=== PATIENT | male | born 1945 | race Caucasian/White ===

== ENCOUNTER 2017-02-13 14:38 | Inpatient (IN) | payer MEDICARE, OTHER ==
[~2017-02-13] VITALS: Ht 182.9 cm; Wt 86.7 kg
[2017-02-13] MEDS ORDERED: methylPREDNISolone SOD SUCC 125 MG/2 ML IVP ONE (15:00)
[2017-02-13] MEDS ORDERED: SODIUM CHLORIDE FLUSH 10ML SYR IVF ONE (15:00)
[2017-02-13] MEDS ORDERED: methylPREDNISolone SOD SUCC 125 MG/2 ML ONE ×2 (15:21→17:59)
[2017-02-13] MEDS ORDERED: HYDROmorphone 2 MG/ML, 1ML ONE (15:21)
[2017-02-13] MEDS ORDERED: FUROSEMIDE 20 MG/2 ML ONE ×3 (15:21→16:43)
[2017-02-13] MEDS ORDERED: FUROSEMIDE 20 MG/2 ML IV ONE ×2 (15:30→16:30)
[2017-02-13] MEDS ORDERED: AZITHROMYCIN 500 MG in SODIUM CHLORIDE 0.9% 250 ML IV ONE (15:30)
[2017-02-13] MEDS ORDERED: CEFTRIAXONE PMX 1GM/50ML 50 ML IV ONE (15:30)
[2017-02-13] MEDS ORDERED: HYDROmorphone 1 MG/ML, 1ML IV ONE (15:30)
[2017-02-13] MEDS ORDERED: CEFTRIAXONE PMX 1GM/50ML 50 ML ONE (15:36)
[2017-02-13 15:44] LABS: HEMATOCRIT 42.8 % (39.2-51.8); HEMOGLOBIN 14.4 g/dL (13.7-18.0); WHITE BLOOD COUNT 9.3 x10^3/uL (3.4-10)
[2017-02-13 15:48] LABS: ASPARTATE AMINO TRANSFERASE 13 U/L (15-37); BLOOD UREA NITROGEN 18 mg/dL (7-18)
[2017-02-13 15:53] LABS: IS PT STATUS REG ER OR PRE ER? YES
[2017-02-13] MEDS ORDERED: ALBUTEROL SULFATE 2.5 MG/3 ML NPPB ONE (16:00)
[2017-02-13] MEDS ORDERED: ALBUTEROL/IPRATROPIUM 2.5MG/0.5MG, 3 ML ONE (16:01)
[2017-02-13 16:11] LABS: ABG COLLECTION SITE LEFT RADIAL; COLLATERAL CIRCULATION TESTING NORMAL
[2017-02-13 16:16] LABS: RAPID INFLUENZA A Negative (Negative); RAPID INFLUENZA B Negative (Negative)
[2017-02-13] MEDS ORDERED: ENOXAPARIN 40 MG/0.4 ML ONE (17:59)
[2017-02-13] MEDS: NICOTINE 14MG/24 HR PATCH.TD24 TD SCH (18:00)
[2017-02-13] MEDS: methylPREDNISolone SOD SUCC 125 MG/2 ML IVPush SCH ×2 (18:03→23:46)
[2017-02-13] MEDS: ENOXAPARIN 40 MG/0.4 ML SQ SCH (18:04)
[2017-02-13 18:33] VITALS: BP 137/53
[2017-02-13] MEDS: FAMOTIDINE 20 MG TABLET PO SCH (20:48)
[2017-02-13] MEDS ORDERED: THIAMINE 100 MG, FOLIC ACID 1 MG, MVI ADULT 10 ML in SODIUM CHLORIDE 0.9% 1,000 ML IV SCH (21:00)
[2017-02-13 22:28] LABS: IS PT STATUS REG ER OR PRE ER? NO
[2017-02-14 03:02] LABS: HEMATOCRIT 38.4 % (39.2-51.8); HEMOGLOBIN 12.9 g/dL (13.7-18.0); WHITE BLOOD COUNT 3.6 x10^3/uL (3.4-10)
[2017-02-14 03:12] LABS: BLOOD UREA NITROGEN 24 mg/dL (7-18)
[2017-02-14 03:19] LABS: ASPARTATE AMINO TRANSFERASE 11 U/L (15-37); IS PT STATUS REG ER OR PRE ER? NO
[2017-02-14 04:17] VITALS: BP 130/36
[2017-02-14] MEDS: ASPIRIN 81 MG TABLET EC PO SCH (06:03)
[2017-02-14] MEDS: methylPREDNISolone SOD SUCC 125 MG/2 ML IVPush SCH ×3 (06:04→22:08)
[2017-02-14] MEDS ORDERED: FUROSEMIDE 20 MG/2 ML IV SCH (07:30)
[2017-02-14] MEDS: FAMOTIDINE 20 MG TABLET PO SCH ×2 (09:35→21:00)
[2017-02-14] MEDS: CLOPIDOGREL 75 MG TABLET PO SCH (09:35)
[2017-02-14 10:30] VITALS: BP 157/62
[2017-02-14] MEDS: FOLIC ACID 1 MG TABLET PO SCH (13:00)
[2017-02-14] MEDS: THIAMINE 100MG TABLET PO SCH (13:00)
[2017-02-14 13:07] VITALS: BP 163/72
[2017-02-14] MEDS: ENOXAPARIN 40 MG/0.4 ML SQ SCH (18:00)
[2017-02-14] MEDS: NICOTINE 14MG/24 HR PATCH.TD24 TD SCH (18:16)
[2017-02-14 21:00] VITALS: BP 157/78
[2017-02-14] MEDS ORDERED: FUROSEMIDE 20 MG/2 ML IV ONE (21:00)
[2017-02-15 01:23] VITALS: BP 144/74
[2017-02-15 04:00] VITALS: BP 144/71
[2017-02-15] MEDS: ASPIRIN 81 MG TABLET EC PO SCH (05:18)
[2017-02-15] MEDS: methylPREDNISolone SOD SUCC 125 MG/2 ML IVPush SCH ×3 (05:18→21:27)
[2017-02-15 05:55] LABS: HEMOGLOBIN 13.6 g/dL (13.7-18.0); WHITE BLOOD COUNT 10.1 x10^3/uL (3.4-10)
[2017-02-15 06:15] LABS: ASPARTATE AMINO TRANSFERASE 15 U/L (15-37); BLOOD UREA NITROGEN 22 mg/dL (7-18)
[2017-02-15 07:45] VITALS: BP 170/83
[2017-02-15] MEDS: CLOPIDOGREL 75 MG TABLET PO SCH (09:29)
[2017-02-15] MEDS: FOLIC ACID 1 MG TABLET PO SCH (09:29)
[2017-02-15] MEDS: THIAMINE 100MG TABLET PO SCH (09:29)
[2017-02-15] MEDS: FAMOTIDINE 20 MG TABLET PO SCH ×2 (09:29→21:27)
[2017-02-15] MEDS ORDERED: FUROSEMIDE 40 MG/4 ML IV ONE (11:26)
[2017-02-15 12:46] VITALS: BP 156/73
[2017-02-15] MEDS: ENOXAPARIN 40 MG/0.4 ML SQ SCH (17:15)
[2017-02-15] MEDS: FUROSEMIDE 40 MG/4 ML IV SCH (17:15)
[2017-02-15] MEDS: NICOTINE 14MG/24 HR PATCH.TD24 TD SCH (17:21)
[2017-02-15 19:00] VITALS: BP 167/80
[2017-02-16 02:28] VITALS: BP 150/77
[2017-02-16] MEDS: ASPIRIN 81 MG TABLET EC PO SCH (06:06)
[2017-02-16 06:55] VITALS: BP 166/73
[2017-02-16 07:46] LABS: BLOOD UREA NITROGEN 28 mg/dL (7-18)
[2017-02-16] MEDS: FUROSEMIDE 40 MG/4 ML IV SCH ×2 (08:30→18:45)
[2017-02-16] MEDS: methylPREDNISolone SOD SUCC 125 MG/2 ML IVPush SCH (08:33)
[2017-02-16] MEDS: FAMOTIDINE 20 MG TABLET PO SCH ×2 (08:36→21:03)
[2017-02-16] MEDS: FOLIC ACID 1 MG TABLET PO SCH (08:36)
[2017-02-16] MEDS: CLOPIDOGREL 75 MG TABLET PO SCH (08:36)
[2017-02-16] MEDS: THIAMINE 100MG TABLET PO SCH (08:36)
[2017-02-16] MEDS: LISINOPRIL 5 MG TABLET PO SCH (08:36)
[2017-02-16 13:05] VITALS: BP 160/70
[2017-02-16] MEDS ORDERED: ALBUTEROL SULFATE 2.5 MG/3 ML ONE (13:13)
[2017-02-16] MEDS: ENOXAPARIN 40 MG/0.4 ML SQ SCH (18:43)
[2017-02-16] MEDS: NICOTINE 14MG/24 HR PATCH.TD24 TD SCH (18:44)
[2017-02-16] MEDS: ALBUTEROL SULFATE 2.5 MG/3 ML NPPB SCH ×2 (19:00→19:21)
[2017-02-16 19:37] VITALS: BP 131/55
[2017-02-17 01:37] VITALS: BP 147/65
[2017-02-17] MEDS: ASPIRIN 81 MG TABLET EC PO SCH (05:47)
[2017-02-17] MEDS: ALBUTEROL SULFATE 2.5 MG/3 ML NPPB SCH ×2 (07:00→10:50)
[2017-02-17] MEDS ORDERED: FLUTICASONE/VILANTEROL 100-25MCG/INH INH SCH (09:00)
[2017-02-17] MEDS: THIAMINE 100MG TABLET PO SCH (09:14)
[2017-02-17] MEDS: FAMOTIDINE 20 MG TABLET PO SCH (09:14)
[2017-02-17] MEDS: FOLIC ACID 1 MG TABLET PO SCH (09:15)
[2017-02-17] MEDS: LISINOPRIL 5 MG TABLET PO SCH (09:15)
[2017-02-17] MEDS: FUROSEMIDE 40 MG/4 ML IV SCH (09:15)
[2017-02-17] MEDS: CLOPIDOGREL 75 MG TABLET PO SCH (09:15)
[2017-02-17] MEDS ORDERED: FURO40TA6 PO (11:25)
[2017-02-17] MEDS ORDERED: LISI5TAB7 PO (11:25)
[2017-02-17] MEDS ORDERED: ALBU2.5V NPPB (11:25)
[2017-02-17] MEDS ORDERED: CLOP75TA PO (11:25)
[2017-02-17] MEDS ORDERED: ASPI-621 PO (11:25)
[2017-02-17] MEDS ORDERED: FUROSEMIDE 40 MG TABLET PO SCH (17:00)
== END 2017-02-17 13:00 | disposition home or self-care (01) | DRG 291 ==
LOC: ED 16:28 → EDIP 16:29 → ED 17:04 → CCU 18:09 → 3NE 02-14 11:00
PROVIDERS: ADMIT Hospitalist; ATTEND Internal Medicine
PROC: 5A09357 Assistance with Respiratory Ventilation, Less than 24 Consecutive Hours, Continuous Positive Airway Pressure (ICD-10-PCS; principal; 2017-02-13)
DX: I11.0 Hypertensive heart disease with heart failure (principal); J96.01 Acute respiratory failure with hypoxia; J81.0 Acute pulmonary edema; E87.1 Hypo-osmolality and hyponatremia; J44.1 Chronic obstructive pulmonary disease with (acute) exacerbation; I50.41 Acute combined systolic (congestive) and diastolic (congestive) heart failure; I25.10 Atherosclerotic heart disease of native coronary artery without angina pectoris; E11.51 Type 2 diabetes mellitus with diabetic peripheral angiopathy without gangrene; E11.42 Type 2 diabetes mellitus with diabetic polyneuropathy; I65.29 Occlusion and stenosis of unspecified carotid artery; F17.210 Nicotine dependence, cigarettes, uncomplicated; N28.9 Disorder of kidney and ureter, unspecified; Z79.02 Long term (current) use of antithrombotics/antiplatelets; Z79.82 Long term (current) use of aspirin; Z95.5 Presence of coronary angioplasty implant and graft
CPT/HCPCS: 36415; 36600; 71010; 80048; 80053; 82803; 83605; 83735; 83880; 84100; 84145; 84484; 85025; 85610; 85730; 87040; 87081; 87400; 93005; 93306; 94640; 94660; 96365; 96368; 96375; J0456; J0696; J1170; J1650; J1940; J3411; J7613; J2930; J7030; J7050

== ENCOUNTER 2017-04-12 07:52 | Day surgery (SDC) | payer OTHER ==
[~2017-04-12] VITALS: Ht 182.9 cm; Wt 77.3 kg
[~2017-04-12 07:52] MED LIST: ALBU2.5V NPPB; ASPI-621 PO; CLOP75TA PO; FURO40TA6 PO; LISI5TAB7 PO
[2017-04-12] MEDS ORDERED: SODIUM CHLORIDE 0.9% 1,000 ML IV SCH ×2 (08:07→12:53)
[2017-04-12] MEDS ORDERED: PRAV40TA2 PO (08:13)
[2017-04-12] MEDS ORDERED: FURO-92 PO (08:13)
[2017-04-12] MEDS ORDERED: METO25TA35 PO (08:13)
[2017-04-12] MEDS ORDERED: ASPI-650 PO (08:15)
[2017-04-12] MEDS ORDERED: LOSA100T6 PO (08:15)
[2017-04-12 08:35] VITALS: BP 153/70
[2017-04-12 09:14] LABS: BASOPHILS # (AUTO) 0.04 x10^3/uL (0-0.1); BASOPHILS % (AUTO) 1 % (0-1); EOSINOPHILS # (AUTO) 0.44 x10^3/uL (0-0.4); EOSINOPHILS % (AUTO) 6 % (1-7); LYMPHOCYTES # (AUTO) 1.11 x10^3/uL (1-3.4); LYMPHOCYTES % (AUTO) 15 % (22-44); MD NO; MEAN CORPUSCULAR HEMOGLOBIN 30.9 pg (27.5-34.5); MEAN CORPUSCULAR HGB CONC 33.6 g/dL (33.2-36.2); MEAN CORPUSCULAR VOLUME 91.9 fL (81-97); MEAN PLATELET VOLUME 8.4 fL (7.4-10.4); MONOCYTES % (AUTO) 12 % (2-9); NEUTROPHILS # (AUTO) 4.84 x10^3/uL (1.8-6.8); NEUTROPHILS % (AUTO) 66 % (42-75); PLATELET COUNT 168 x10^3/uL (130-400); RED BLOOD COUNT 4.73 x10^6/uL (4.38-5.82); RED CELL DISTRIBUTION WIDTH 17.1 % (9.4-14.8)
[2017-04-12 09:23] LABS: INTERNATIONAL NORMALIZED RATIO 1.07 (0.93-1.1)
[2017-04-12 09:26] LABS: ANION GAP 3 mmol/L (5-15); CALCIUM 8.4 mg/dL (8.5-10.1); CHLORIDE 105 mmol/L (98-107); CREATININE 1.48 mg/dL (0.7-1.3)
[2017-04-12] MEDS ORDERED: TICAGRELOR 90 MG TABLET ONE ×2 (12:15→12:23)
[2017-04-12] MEDS ORDERED: FENTANYL PF 100 MCG/2ML ONE ×2 (12:15→12:23)
[2017-04-12] MEDS ORDERED: VERAPAMIL 2.5 MG/ML, 2ML ONE (12:15)
[2017-04-12] MEDS ORDERED: MIDAZOLAM 1 MG/ML, 2ML ONE (12:16)
[2017-04-12] MEDS ORDERED: BIVALIRUDIN 250 MG ONE (12:16)
[2017-04-12] MEDS ORDERED: LIDOCAINE 2%, 20ML ONE (12:16)
[2017-04-12] MEDS ORDERED: HEPARIN 1,000 UNITS/ML, 10ML ONE (12:16)
== END 2017-04-12 15:45 ==
LOC: CACL 07:52
PROVIDERS: ATTEND Internal Medicine Cardiovascular Disease
DX: I25.10 Atherosclerotic heart disease of native coronary artery without angina pectoris (principal); I10 Essential (primary) hypertension; E78.5 Hyperlipidemia, unspecified; I25.5 Ischemic cardiomyopathy; J44.9 Chronic obstructive pulmonary disease, unspecified; I73.9 Peripheral vascular disease, unspecified; I27.21 Secondary pulmonary arterial hypertension; I50.41 Acute combined systolic (congestive) and diastolic (congestive) heart failure; Z72.0 Tobacco use; Z79.82 Long term (current) use of aspirin; Z98.61 Coronary angioplasty status
CPT/HCPCS: 36415; 80048; 85025; 85610; 85730; 93005; 93458; 99156; C1894; J1644; J2250; J3010; J3490; Q9967; J0583